=== PATIENT | male | born 1970 | race Caucasian/White ===

== ENCOUNTER 2021-04-22 14:00 | Observation (INO) ==
--- NOTE | 2021-04-22 16:23 | Emergency Department Note ---
History of Present Illness General Chief complaint: Weakness Stated complaint: LEFT SIDE OF BODY NUMBNESS Time Seen by Provider: 04/22/21 16:06 Source: patient History of Present Illness Provider complaint: Left-sided numbness Onset (ago): hour(s) Location: head, face, upper extremity, lower extremity and left Severity: mild Pain Consistency: + constant Maximum Pain Intensity: 2 Quality: + other ([id number]) Relieved By: + none Exacerbated By: + none Associated symptoms: + headaches (Very slight left-sided headache) and + weakness (Left leg); no chest pain, no cough, no fever/chills, no nausea/vomiting or no shortness of breath Treatments prior to arrival: none This is a 50-year-old male with a history of anxiety presenting with left-sided numbness and weakness. The patient developed left-sided numbness to the left leg last spring. He had back pain associated with it and it resolved after physical therapy. He has been having back pain and paresthesias to the left leg for the past month. He describes it as a [id number]-vmbqvbi sensation. He is not sure if he is weak in that leg but he states it feels hard to walk because it feels numb. He states that today he developed numbness to the head, face and arm on the left side starting at noon. He was not doing anything in particular. He had just exercised. He also describes this as a [id number] sensation. Is mostly on the ulnar aspect of the left arm. It does involve the scalp as well as the face. He does not feel weak in the upper extremity. He has had no trouble with his speech, finding words, swallowing, vision or double vision. He did have a slight headache develop on his way here on the left side. He denies any neck pain. He does have some minor back pain which is chronic for him. He denies any fever, cough or cold symptoms, chest pain, shortness of breath, abdominal pain, vomiting, diarrhea or urinary symptoms. He has had his Covid vaccinations in January. He has never contracted COVID-19. He denies any fecal urinary incontinence or saddle anesthesia. Home Medications Medication Instructions Recorded Confirmed Type calcium 600 mg capsule 600 mg PO QAM 04/22/21 04/22/21 History celecoxib 200 mg capsule 200 mg PO QAM 04/22/21 04/22/21 History cholecalciferol (vitamin D3) 25 25 mcg PO QAM 04/22/21 04/22/21 History mcg (1,000 unit) tablet (Vitamin D3) duloxetine 30 mg capsule,delayed 30 mg PO DAILY@1730 04/22/21 04/22/21 History release multivitamin 1 tab PO QAM 04/22/21 04/22/21 History Allergies Allergy/AdvReac Type Severity Reaction Status Date / Time Cipro Allergy Unknown HIVES Verified 01/10/16 12:22 ciprofloxacin Allergy Unknown HIVES Verified 04/22/21 17:03 Past Med/Surg History Medical History (Updated 04/22/21 @ 23:52 by Rickey Diallo MD) Anxiety IBS (irritable bowel syndrome) Lymphocytic colitis Osteoarthritis of knees, bilateral Surgical History (Updated 04/22/21 @ 20:10 by Peterson Huitron) S/P arthroscopy of knee Family History (Updated 04/22/21 @ 20:12 by Peterson Huitron) Mother , age 86 Myocardial infarction x 3 Parkinson disease Father , in his late 70s Renal cell cancer Denies family history of Stroke Social History (Updated 04/22/21 @ 20:12 by Peterson Huitron) Smoking Status: Never smoker Do You Dip or Chew Tobacco: No; Hx Alcohol Use: Yes Alcohol type: beer and wine Alcohol type Comment: 3 beers/day Alcohol Intake Frequency: 4 or More x per/Week Hx Substance Use: No Preferred Language: Wolof Communication Ability: Effective Motor Man Required: No Beliefs That Will Affect Care: None marital status: Current Living Situation: Spouse Current Living Situation Comment: Marisa current occupational status: employed 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 and A total of 10 systems reviewed and were otherwise negative Physical Exam Vital Signs Vital Signs - 24 hr 04/22/21 14:05 04/22/21 16:00 04/22/21 16:42 Temperature 36.6 C Temperature Source Oral Pulse Rate 92 H 83 Pulse Rate [Apical] 87 Pulse Rate from SpO2 Sensor 84 Pulse Rhythm [Apical] Regular Pulse Strength [Apical] Normal Respiratory Rate 20 20 30 H Respiratory Effort / Characteristics Non-Labored Spontaneous Respiratory Depth Normal Respiratory Pattern Regular Blood Pressure 164/106 H 175/95 H Blood Pressure [Right Arm] 175/95 H Blood Pressure Mean 125 121 Blood Pressure Mean [Right Arm] 121 Pulse Oximetry 99 99 100 Oxygen Delivery Method Room Air Room Air Sepsis Recent Fever Within 48 Hours No Sepsis New/Unexplained Change in Mental Status N/A Sepsis Action Taken by Nursing No Action Required 04/22/21 17:00 04/22/21 17:30 04/22/21 18:00 Temperature Temperature Source Pulse Rate 84 74 76 Pulse Rate [Apical] Pulse Rate from SpO2 Sensor 87 75 74 Pulse Rhythm [Apical] Pulse Strength [Apical] Respiratory Rate 24 20 19 Respiratory Effort / Characteristics Respiratory Depth Respiratory Pattern Blood Pressure 166/105 H 172/103 H 134/81 Blood Pressure [Right Arm] Blood Pressure Mean 125 126 98 Blood Pressure Mean [Right Arm] Pulse Oximetry 99 98 99 Oxygen Delivery Method Sepsis Recent Fever Within 48 Hours Sepsis New/Unexplained Change in Mental Status Sepsis Action Taken by Nursing 04/22/21 18:30 04/22/21 19:01 Temperature Temperature Source Pulse Rate 67 82 Pulse Rate [Apical] Pulse Rate from SpO2 Sensor 68 85 Pulse Rhythm [Apical] Pulse Strength [Apical] Respiratory Rate 18 21 Respiratory Effort / Characteristics Respiratory Depth Respiratory Pattern Blood Pressure 139/88 176/96 H Blood Pressure [Right Arm] Blood Pressure Mean 105 122 Blood Pressure Mean [Right Arm] Pulse Oximetry 98 97 Oxygen Delivery Method Sepsis Recent Fever Within 48 Hours Sepsis New/Unexplained Change in Mental Status Sepsis Action Taken by Nursing Constitutional: Vital signs reviewed. Eyes: Pupils are equal round reactive to light. Conjunctiva are noninjected. ENT: Pharynx is clear without erythema or exudate. Mucous membranes are moist. Neck supple without meningeal signs. Respiratory: Clear to auscultation bilaterally. Breath sounds are equal bilaterally. Cardiovascular: Regular rate and rhythm. No rubs or gallops. GI: Soft, nondistended and nontender. Bowel sounds are present. Musculoskeletal: No peripheral edema. No lower extremity tenderness. Integumentary: No cyanosis. or jaundice. Neurologic: The patient is awake and alert. Cranial nerves II-XII are intact, with dysesthesia to the scalp and left side of his face. Motor is 5 out of 5 all extremities except the left lower extremity which is 4 out of 5. Sensation is intact to light touch all extremities with dysesthesia to the left upper and lower extremity over the ulnar and lateral aspects.. Normal speech. No pronator drift. No limb ataxia. Normal gait. Psychiatric: Anxious. Course Administered Medications Sodium Chloride (Nss 1000ml) 1,000 mls @ 100 mls/hr IV .Q10H ROBERT Stop: 04/23/21 08:33 Last Admin: 04/22/21 23:05 Dose: 100 mls/hr Documented by: [id number] Discontinued Medications Aspirin (Aspirin 81 Mg Chew) 324 mg PO NOW STA Stop: 04/22/21 17:17 Last Admin: 04/22/21 17:25 Dose: 324 mg Documented by: [id number] Ioversol (Optiray 320 125ml) 115 ml IV ONCE ONE Stop: 04/22/21 16:29 Last Admin: 04/22/21 16:29 Dose: 115 ml Documented by: [id number] Medical Decision Making Differential Diagnosis Demyelinating disease, multiple sclerosis, paresthesias, intracranial mass, intracranial hemorrhage, CVA, lumbar radiculopathy Medical Records Attestation: I reviewed the patient's medical records. I did perform a limited focused review of portions of the patient's old chart on the electronic medical record. The patient has had no recent pertinent visits to this hospital. Home Medications Current Medication List: was personally reviewed by me Laboratory Data Attestation: I reviewed the patient's lab results. Result diagrams: 04/22/21 16:27 04/22/21 16:27 Lab Results 04/22/21 04/22/21 04/22/21 Range/Units 16:27 16:27 16:27 WBC 7.10 (4.8-10.8) K/uL RBC 4.42 L (4.7-6.1) M/uL Hgb 14.8 (14.0-18.0) g/dL Hct 43.8 (42-52) % MCV 99.1 (80-100) fL MCH 33.5 (25-34) pg MCHC 33.8 (32-36) g/dL RDW Std Deviation 47.4 H (36.4-46.3) fL RDW Coeff of Estelle 13.0 (11.5-14.5) % Plt Count 209 (130-400) K/uL MPV 9.2 (7.4-10.4) fL Immature Gran % (Auto) 0.1 % Neut % (Auto) 73.1 % Lymph % (Auto) 16.9 % [place] % (Auto) 7.9 % Eos % (Auto) 1.7 % Baso % (Auto) 0.3 % Neut # (Auto) 5.19 (1.4-6.5) K/uL Lymph # (Auto) 1.20 (1.2-3.4) K/uL [place] # (Auto) 0.56 (0.11-0.59) K/uL Eos # (Auto) 0.12 (0-0.5) K/uL Baso # (Auto) 0.02 (0-0.2) K/uL Immature Gran # (Auto) 0.01 (0.00-0.02) K/uL ESR (0-15) mm/hr PT 10.1 (9.0-12.0) Seconds INR 1.0 (0.9-1.1) APTT 25.4 (21.0-31.0) Seconds PTT Ratio 1.0 Sodium 136 (136-145) mmol/L Potassium 3.8 (3.5-5.1) mmol/L Chloride 102 (98-107) mmol/L Carbon Dioxide 30 (21-32) mmol/L Anion Gap 4.0 (3-11) BUN 16 (7-18) mg/dl Creatinine 1.02 (0.6-1.4) mg/dl Est Cr Clr Drug Dosing 108.7 ml/min Est GFR ( Amer) 100.3 ml/min Est GFR (Non-Af Amer) 86.5 ml/min BUN/Creatinine Ratio 15.8 (10-20) Glucose 105 H (70-99) mg/dl POC Glucose (70-99) mg/dl Calcium 9.8 (8.5-10.1) mg/dl Magnesium 1.9 (1.8-2.4) mg/dl Total Bilirubin 0.5 (0.2-1) mg/dl AST 43 H (15-37) U/L ALT 65 (12-78) U/L Alkaline Phosphatase 88 (45-117) U/L Troponin I < 0.015 (0-0.045) ng/ml C-Reactive Protein < 0.29 (0-0.29) mg/dl Total Protein 8.3 H (6.4-8.2) gm/dl Albumin 4.7 (3.4-5.0) gm/dl Globulin 3.6 (2.5-4.0) gm/dl Albumin/Globulin Ratio 1.3 (0.9-2) Lyme Disease IgG Ab (Negative) Lyme Disease IgM Ab (Negative) Blood Type Antibody Screen 04/22/21 04/22/21 04/22/21 Range/Units 16:27 16:27 16:40 WBC (4.8-10.8) K/uL RBC (4.7-6.1) M/uL Hgb (14.0-18.0) g/dL Hct (42-52) % MCV (80-100) fL MCH (25-34) pg MCHC (32-36) g/dL RDW Std Deviation (36.4-46.3) fL RDW Coeff of Estelle (11.5-14.5) % Plt Count (130-400) K/uL MPV (7.4-10.4) fL Immature Gran % (Auto) % Neut % (Auto) % Lymph % (Auto) % [place] % (Auto) % Eos % (Auto) % Baso % (Auto) % Neut # (Auto) (1.4-6.5) K/uL Lymph # (Auto) (1.2-3.4) K/uL [place] # (Auto) (0.11-0.59) K/uL Eos # (Auto) (0-0.5) K/uL Baso # (Auto) (0-0.2) K/uL Immature Gran # (Auto) (0.00-0.02) K/uL ESR 10 (0-15) mm/hr PT (9.0-12.0) Seconds INR (0.9-1.1) APTT (21.0-31.0) Seconds PTT Ratio Sodium (136-145) mmol/L Potassium (3.5-5.1) mmol/L Chloride (98-107) mmol/L Carbon Dioxide (21-32) mmol/L Anion Gap (3-11) BUN (7-18) mg/dl Creatinine (0.6-1.4) mg/dl Est Cr Clr Drug Dosing ml/min Est GFR ( Amer) ml/min Est GFR (Non-Af Amer) ml/min BUN/Creatinine Ratio (10-20) Glucose (70-99) mg/dl POC Glucose 82 (70-99) mg/dl Calcium (8.5-10.1) mg/dl Magnesium (1.8-2.4) mg/dl Total Bilirubin (0.2-1) mg/dl AST (15-37) U/L ALT (12-78) U/L Alkaline Phosphatase (45-117) U/L Troponin I (0-0.045) ng/ml C-Reactive Protein (0-0.29) mg/dl Total Protein (6.4-8.2) gm/dl Albumin (3.4-5.0) gm/dl Globulin (2.5-4.0) gm/dl Albumin/Globulin Ratio (0.9-2) Lyme Disease IgG Ab Negative (Negative) Lyme Disease IgM Ab Negative (Negative) Blood Type Antibody Screen 04/22/21 Range/Units 16:52 WBC (4.8-10.8) K/uL RBC (4.7-6.1) M/uL Hgb (14.0-18.0) g/dL Hct (42-52) % MCV (80-100) fL MCH (25-34) pg MCHC (32-36) g/dL RDW Std Deviation (36.4-46.3) fL RDW Coeff of Estelle (11.5-14.5) % Plt Count (130-400) K/uL MPV (7.4-10.4) fL Immature Gran % (Auto) % Neut % (Auto) % Lymph % (Auto) % [place] % (Auto) % Eos % (Auto) % Baso % (Auto) % Neut # (Auto) (1.4-6.5) K/uL Lymph # (Auto) (1.2-3.4) K/uL [place] # (Auto) (0.11-0.59) K/uL Eos # (Auto) (0-0.5) K/uL Baso # (Auto) (0-0.2) K/uL Immature Gran # (Auto) (0.00-0.02) K/uL ESR (0-15) mm/hr PT (9.0-12.0) Seconds INR (0.9-1.1) APTT (21.0-31.0) Seconds PTT Ratio Sodium (136-145) mmol/L Potassium (3.5-5.1) mmol/L Chloride (98-107) mmol/L Carbon Dioxide (21-32) mmol/L Anion Gap (3-11) BUN (7-18) mg/dl Creatinine (0.6-1.4) mg/dl Est Cr Clr Drug Dosing ml/min Est GFR ( Amer) ml/min Est GFR (Non-Af Amer) ml/min BUN/Creatinine Ratio (10-20) Glucose (70-99) mg/dl POC Glucose (70-99) mg/dl Calcium (8.5-10.1) mg/dl Magnesium (1.8-2.4) mg/dl Total Bilirubin (0.2-1) mg/dl AST (15-37) U/L ALT (12-78) U/L Alkaline Phosphatase (45-117) U/L Troponin I (0-0.045) ng/ml C-Reactive Protein (0-0.29) mg/dl Total Protein (6.4-8.2) gm/dl Albumin (3.4-5.0) gm/dl Globulin (2.5-4.0) gm/dl Albumin/Globulin Ratio (0.9-2) Lyme Disease IgG Ab (Negative) Lyme Disease IgM Ab (Negative) Blood Type B Positive Antibody Screen NEGATIVE Imaging Data Radiologist's Impression: Head CT 04/22/21 16:20 CT SCAN OF THE BRAIN WITHOUT IV CONTRAST CLINICAL HISTORY: Left-sided numbness. Lower extremity weakness. COMPARISON STUDY: No priors. TECHNIQUE: Unenhanced axial CT scan of the brain is performed from the vertex to the skull base. A dose lowering technique was utilized adhering to the principles of ALARA. FINDINGS: Brain parenchyma: The brain parenchyma is normal in appearance. There is no hemorrhage, mass effect, or evidence of acute territorial ischemia by CT criteria. Mancia-white matter differentiation is preserved. No extra-axial fluid collection is seen. Ventricles, sulci, cisterns: Normal in configuration. Intracranial vasculature: The visualized intracranial vasculature at the skull base is normal in appearance. Calvarium: Unremarkable. Sinuses and mastoids: The visualized paranasal sinuses are clear. The mastoid air cells are well pneumatized. Orbits: The bony orbits are grossly intact. IMPRESSION: There is no hemorrhage, mass effect, or evidence of acute territori al ischemia by CT criteria. ACT 112: Negative or not required by law. Electronically signed by: Brendan Buitrago M.D. 04/22/2021 4:37 PM Head CTA 04/22/21 16:20 CT ANGIOGRAM OF THE BRAIN; CT ANGIOGRAM OF THE NECK CLINICAL HISTORY: Left-sided numbness. COMPARISON STUDY: Unenhanced CT of the brain performed concurrently on 04/22/2021. TECHNIQUE: Following the IV administration of 115 of Optiray 320, CT angiogram of the head and neck was performed from the aortic arch to the vertex. Images are reviewed in the axial, sagittal, and coronal planes. 3-D MIPS images are created and assessed. IV contrast was administered without complication. All measurements were calculated based on NASCET criteria. A dose lowering techniqu e was utilized adhering to the principles of ALARA. CT DOSE: 1181.82 mGy.cm FINDINGS: Brain parenchyma: The brain parenchyma is normal in appearance. There is no hemorrhage, mass effect, or evidence of acute territorial ischemia by CT criteria. There is no evidence of enhancing mass lesion on the angiogram phase images. The ventricles, sulci, and cisterns are normal in configuration. Mancia- white matter differentiation is preserved. No extra-axial fluid collection is seen. Thoracic aorta: Visualized portions of the thoracic aorta are normal in caliber. The aortic arch demonstrates 4-vessel variant anatomy. Right carotid arterial system: The right common carotid artery is widely patent, as are the right internal and external carotid arteries. Left carotid arterial system: The left common carotid artery is widely patent, as are the left internal and external carotid arteries. Vertebral arteries: The vertebral arteries are widely patent bilaterally noting left-sided dominance. The left vertebral artery arises directly from the thoracic aorta. Subclavian arteries: Widely patent bilaterally. Intracranial vasculature: There are bilateral posterior communicating arteries, and origin of the right posterior cerebral artery. The internal carotid arteries are patent at the skull base, as are the anterior and middle cerebral arteries bilaterally. The vertebrobasilar system and posterior cerebral arteries are widely patent. The left vertebral artery is dominant. The intracranial right vertebral artery is diminutive and terminates as the PICA. There is no aneurysm, high-grade stenosis, or focal vessel cut off seen throughout the intracranial circulation. Jugular veins: Patent bilaterally. Dural sinuses: Patent. Lung apices: Partially visualized upper lobe lung parenchyma appears clear. Soft tissues: The visualized pharyngeal soft tissues are normal in appearance noting angiographic phase technique. The oropharyngeal airway appears widely patent. The salivary and thyroid glands are normal in appearance. No cervical lymphadenopathy is seen. Skeletal structures: The calvarium appears intact. The cervical spine is maintained. A large posterior disc osteophyte complex is noted at C6-C7. Orbits: The bony orbits are intact. Orbital contents are normal as visualized. Sinuses and mastoids: There is trace mucosal thickening in the left maxillary antrum. The remaining paranasal sinuses are clear. The mastoid air cells are well pneumatized. IMPRESSION: 1. There is no evidence of hemorrhage, mass effect, or acute territorial ischemia noting angiographic phase technique. 2. Unremarkable CT angiogram of the brain. 3. Unremarkable CT angiogram of the neck. ACT 112: Negative or not required by law. Electronically signed by: Brendan Buitrago M.D. 04/22/2021 4:45 PM Neck CTA 04/22/21 16:20 CT ANGIOGRAM OF THE BRAIN; CT ANGIOGRAM OF THE NECK CLINICAL HISTORY: Left-sided numbness. COMPARISON STUDY: Unenhanced CT of the brain performed concurrently on 04/22/2021. TECHNIQUE: Following the IV administration of 115 of Optiray 320, CT angiogram of the head and neck was performed from the aortic arch to the vertex. Images are reviewed in the axial, sagittal, and coronal planes. 3-D MIPS images are created and assessed. IV contrast was administered without complication. All measurements were calculated based on NASCET criteria. A dose lowering techniqu e was utilized adhering to the principles of ALARA. CT DOSE: 1181.82 mGy.cm FINDINGS: Brain parenchyma: The brain parenchyma is normal in appearance. There is no hemorrhage, mass effect, or evidence of acute territorial ischemia by CT criteria. There is no evidence of enhancing mass lesion on the angiogram phase images. The ventricles, sulci, and cisterns are normal in configuration. Mancia- white matter differentiation is preserved. No extra-axial fluid collection is seen. Thoracic aorta: Visualized portions of the thoracic aorta are normal in caliber. The aortic arch demonstrates 4-vessel variant anatomy. Right carotid arterial system: The right common carotid artery is widely patent, as are the right internal and external carotid arteries. Left carotid arterial system: The left common carotid artery is widely patent, as are the left internal and external carotid arteries. Vertebral arteries: The vertebral arteries are widely patent bilaterally noting left-sided dominance. The left vertebral artery arises directly from the thoracic aorta. Subclavian arteries: Widely patent bilaterally. Intracranial vasculature: There are bilateral posterior communicating arteries, and origin of the right posterior cerebral artery. The internal carotid arteries are patent at the skull base, as are the anterior and middle cerebral arteries bilaterally. The vertebrobasilar system and posterior cerebral arteries are widely patent. The left vertebral artery is dominant. The intracranial right vertebral artery is diminutive and terminates as the PICA. There is no aneurysm, high-grade stenosis, or focal vessel cut off seen throughout the intracranial circulation. Jugular veins: Patent bilaterally. Dural sinuses: Patent. Lung apices: Partially visualized upper lobe lung parenchyma appears clear. Soft tissues: The visualized pharyngeal soft tissues are normal in appearance noting angiographic phase technique. The oropharyngeal airway appears widely patent. The salivary and thyroid glands are normal in appearance. No cervical lymphadenopathy is seen. Skeletal structures: The calvarium appears intact. The cervical spine is maintained. A large posterior disc osteophyte complex is noted at C6-C7. Orbits: The bony orbits are intact. Orbital contents are normal as visualized. Sinuses and mastoids: There is trace mucosal thickening in the left maxillary antrum. The remaining paranasal sinuses are clear. The mastoid air cells are well pneumatized. IMPRESSION: 1. There is no evidence of hemorrhage, mass effect, or acute territorial ischemia noting angiographic phase technique. 2. Unremarkable CT angiogram of the brain. 3. Unremarkable CT angiogram of the neck. ACT 112: Negative or not required by law. Electronically signed by: Brendan Buitrago M.D. 04/22/2021 4:45 PM ECG Data Attestation: I personally reviewed and interpreted this ECG as follows: Indication: + other (Left-sided numbness) Rate (beats per minute): 70 Rhythm: + normal sinus ECG [place]: + Normal ECG ST segments: no ST elevation ECG Findings: no PVCs MDM Narrative I did evaluate the patient as noted above. Patient is presenting with strokelike symptoms starting at noon today involving the left side of his body. He has some weakness and numbness to the left leg but he has had numbness to the leg for over a month now. He states that he started having numbness to the face and left upper extremity starting at noon today. He is not an IV TPA candidate given the time course of his illness. I did call a stroke alert. IV access was established. I did order a stat CT of the head and CT angiogram of the head and neck. I did review the images myself as well as the radiology report as described above. There is no evidence of acute infarct. Angiograms are unremarkable. I did place an order for continuous cardiac monitoring. The monitor showed normal sinus rhythm at a rate of 92 bpm. I did order and personally review the patient's 12-lead EKG as described above. He has no evidence of dysrhythmia or ischemia. I did order and review the patient's blood work as noted in the electronic medical record. CBC and electrolytes are unremarkable. He does not have leukocytosis or anemia. AST was slightly elevated at 43. Troponin is negative. I did discuss the test results with the patient. He continues to have dysesthesia to the left side of his body. I did recommend hospitalization for further care and evaluation as well as MRI of the brain and lumbar spine. He was agreeable to this. I did discuss case with the hospitalist and employment case manager. Screening Covid test was negative. Impression & Plan Left sided numbness, Elevated AST (SGOT), Left leg weakness Discharge Plan Visit Data Chief Complaint: Weakness Stated Complaint: LEFT SIDE OF BODY NUMBNESS ED Provider: Rickey Diallo Discharge Problem: Left sided numbness, Elevated AST (SGOT), Left leg weakness Patient Disposition: Admitted As Inpatient Discharge Instructions Interventions: ED Discharge Assessment Last Done: 04/22/21 22:09
[2021-04-22] MEDS ORDERED: OPTIRAY 320 125ml IV ONE (16:28)
[2021-04-22 16:36] LABS: Basophils # (auto) 0.02 K/uL (0-0.2); Basophils % (auto) 0.3 %; Eosinophils # (auto) 0.12 K/uL (0-0.5); Eosinophils % (auto) 1.7 %; Hematocrit (blood only) 43.8 % (42-52); Hemoglobin 14.8 g/dL (14.0-18.0); Immature Granulocytes # (auto) 0.01 K/uL (0.00-0.02); Immature Granulocytes % (auto) 0.1 %; Lymphocytes % (auto) 16.9 %; Mean Corpuscular Hemoglobin 33.5 pg (25-34); Mean Corpuscular Hgb Conc 33.8 g/dL (32-36); Mean Corpuscular Volume 99.1 fL (80-100); Mean Platelet Volume 9.2 fL (7.4-10.4); Monocytes # (auto) 0.56 K/uL (0.11-0.59); Monocytes % (auto) 7.9 %; Neutrophils # (auto) 5.19 K/uL (1.4-6.5); Neutrophils % (auto) 73.1 %; Platelet Count 209 K/uL (130-400); RDW Standard Deviation 47.4 fL (36.4-46.3); Red Blood Count 4.42 M/uL (4.7-6.1)
--- NOTE | 2021-04-22 16:39 | CT Scan Report ---
CT SCAN OF THE BRAIN WITHOUT IV CONTRAST CLINICAL HISTORY: Left-sided numbness. Lower extremity weakness. COMPARISON STUDY: No priors. TECHNIQUE: Unenhanced axial CT scan of the brain is performed from the vertex to the skull base. A d ose lowering technique was utilized adhering to the principles of ALARA. FINDINGS: Brain parenchyma: The brain parenchyma is normal in appearance. There is no hemorrhage, mass effect, or evidence of acute territorial ischemia by CT criteria. Mancia-white matter differentiation is preser roberto. No extra-axial fluid collection is seen. Ventricles, sulci, cisterns: Normal in configuration. Intracranial vasculature: The visualized intracranial vasculature at the skull base is normal in appe arance. Calvarium: Unremarkable. Sinuses and mastoids: The visualized paranasal sinuses are clear. The mastoid air cells are well pneu matized. Orbits: The bony orbits are grossly intact. IMPRESSION: There is no hemorrhage, mass effect, or evidence of acute territorial ischemia by CT tatiana lópez. ACT 112: Negative or not required by law. Electronically signed by: Brendan Buitrago M.D. 04/22/2021 4:37 PM
--- NOTE | 2021-04-22 16:46 | CT Scan Report ---
CT ANGIOGRAM OF THE BRAIN; CT ANGIOGRAM OF THE NECK CLINICAL HISTORY: Left-sided numbness. COMPARISON STUDY: Unenhanced CT of the brain performed concurrently on 04/22/2021. TECHNIQUE: Following the IV administration of 115 of Optiray 320, CT angiogram of the head and neck w as performed from the aortic arch to the vertex. Images are reviewed in the axial, sagittal, and fidel nal planes. 3-D MIPS images are created and assessed. IV contrast was administered without complicati on. All measurements were calculated based on NASCET criteria. A dose lowering technique was utilize d adhering to the principles of ALARA. CT DOSE: 1181.82 mGy.cm FINDINGS: Brain parenchyma: The brain parenchyma is normal in appearance. There is no hemorrhage, mass effect, or evidence of acute territorial ischemia by CT criteria. There is no evidence of enhancing mass lesi on on the angiogram phase images. The ventricles, sulci, and cisterns are normal in configuration. Gr ay-white matter differentiation is preserved. No extra-axial fluid collection is seen. Thoracic aorta: Visualized portions of the thoracic aorta are normal in caliber. The aortic arch demo nstrates 4-vessel variant anatomy. Right carotid arterial system: The right common carotid artery is widely patent, as are the right int ernal and external carotid arteries. Left carotid arterial system: The left common carotid artery is widely patent, as are the left international travel consultant al and external carotid arteries. Vertebral arteries: The vertebral arteries are widely patent bilaterally noting left-sided dominance. The left vertebral artery arises directly from the thoracic aorta. Subclavian arteries: Widely patent bilaterally. Intracranial vasculature: There are bilateral posterior communicating arteries, and origin of t he right posterior cerebral artery. The internal carotid arteries are patent at the skull base, as ar e the anterior and middle cerebral arteries bilaterally. The vertebrobasilar system and posterior cer ebral arteries are widely patent. The left vertebral artery is dominant. The intracranial right verte bral artery is diminutive and terminates as the PICA. There is no aneurysm, high-grade stenosis, or f ocal vessel cut off seen throughout the intracranial circulation. Jugular veins: Patent bilaterally. Dural sinuses: Patent. Lung apices: Partially visualized upper lobe lung parenchyma appears clear. Soft tissues: The visualized pharyngeal soft tissues are normal in appearance noting angiographic pha se technique. The oropharyngeal airway appears widely patent. The salivary and thyroid glands are nor mal in appearance. No cervical lymphadenopathy is seen. Skeletal structures: The calvarium appears intact. The cervical spine is maintained. A large posterio r disc osteophyte complex is noted at C6-C7. Orbits: The bony orbits are intact. Orbital contents are normal as visualized. Sinuses and mastoids: There is trace mucosal thickening in the left maxillary antrum. The remaining p aranasal sinuses are clear. The mastoid air cells are well pneumatized. IMPRESSION: 1. There is no evidence of hemorrhage, mass effect, or acute territorial ischemia noting angiographic phase technique. 2. Unremarkable CT angiogram of the brain. 3. Unremarkable CT angiogram of the neck. ACT 112: Negative or not required by law. Electronically signed by: Brendan Buitrago M.D. 04/22/2021 4:45 PM
[2021-04-22 16:49] LABS: Partial Thromboplastin Time 25.4 Seconds (21.0-31.0); Prothrombin Time 10.1 Seconds (9.0-12.0)
[2021-04-22 16:54] LABS: Alanine Aminotransferase 65 U/L (12-78); Albumin Level 4.7 gm/dl (3.4-5.0); Aspartate Aminotransferase 43 U/L (15-37); BUN Creatinine Ratio 15.8 (10-20); Blood Urea Nitrogen 16 mg/dl (7-18); Calcium 9.8 mg/dl (8.5-10.1); Carbon Dioxide 30 mmol/L (21-32); Chloride 102 mmol/L (98-107); Creatinine Clr Calc Pharmacy 108.7 ml/min; Est GFR (African American) 100.3 ml/min; Est GFR (Non-African American) 86.5 ml/min; Glucose 105 mg/dl (70-99); Magnesium 1.9 mg/dl (1.8-2.4); Potassium 3.8 mmol/L (3.5-5.1); Sodium 136 mmol/L (136-145)
[2021-04-22 16:59] LABS: Albumin Globulin Ratio 1.3 (0.9-2); Alkaline Phosphatase 88 U/L (45-117); Bilirubin,Total 0.5 mg/dl (0.2-1); Globulin 3.6 gm/dl (2.5-4.0); Total Protein 8.3 gm/dl (6.4-8.2); Troponin I < 0.015 ng/ml (0-0.045)
[2021-04-22] MEDS ORDERED: ASPIRIN 81 MG CHEW PO STA (17:16)
[2021-04-22 18:39] LABS: C Reactive Protein < 0.29 mg/dl (0-0.29)
[2021-04-22 19:08] LABS: Lyme Ab IgG w/WB Rflx Negative (Negative); Lyme Ab IgM w/WB Rflx Negative (Negative)
--- NOTE | 2021-04-22 20:06 | History & Physical Report ---
Date of Service April 22, 2021 Assessment & Plan (1) Left sided numbness: Plan: Symptoms have now persisted for 6+ hours. Left side of face/arm/trunk/leg remain numb. Right side is spared; no motor symptoms, speech clear. Sent a lyme screen - negative. sed rate and crp both normal. Symptoms/presentation worrisome for a pure sensory stroke which would localize to the right deep brain/brainstem. Cervical spine radiculopathy is possible but would only explain the left arm symptoms; he otherwise has no signs of myelopathy, and cervical radiculopathy shouldn't cause maribel-sensory loss of the face. NO history of migraines thus atypical migraine unlikely. Plan - * observe on telemetry * MRI brain w/ and w/o contrast - r/o stroke, r/o tumor, r/o other process * echo * lipids, a1c in am * could consider a b12 level but b12 deficiency tends to lead to b/l symptoms; presentation not c/w b12 def * consult neuro for additional recs in am * consider c-spine MRI as the CTA neck showed a large disc herniation at C6-C7 In the event this is a TIA or stroke event - start asa 81mg daily in am. BPs are high - allow permissiveness in BP until cause of symptoms is known. (2) Elevated blood pressure reading without diagnosis of hypertension: Plan: No prior h/o HTN. Could be related to #1. Could be related to steroid injections yesterday. Could be related to celebrex taken earlier today. Follow the BPs off of meds for now. (3) Abnormal CT scan, cervical spine: Plan: CTA neck showed a large posterior disc osteophyte at C6-C7. This bears watching and/or additional work-up if MRI brain is negative. (4) Elevated AST (SGOT): Plan: etiology? repeat AST in am. (5) Anxiety: Plan: will add buspar 5mg tid prn as he seems very anxious at time of admission cont cymbalta 30mg daily (6) Osteoarthritis of knees, bilateral: Plan: s/p steroid injections yesterday to both knees (7) DVT prophylaxis: Plan: low risk defer on chemical means for now Plan: place on observation status 1 L NS to be given in light of CT contrast administered earlier today History of Present Illness Chief Complaint: left-sided numbness Primary Care Provider: Ambrose Cervantes MD 50yo male with history of IBS, prior dx of lymphocytic colitis in 2019 (not on Rx), anxiety, and chronic knee pain who presents with left-sided numbness beginning about noon today. Patient states that for about 1 month he has had intermittent numbness of the lateral left leg from the knee down to the foot. He attributed this to his lumbar spine as he has had back problems in the past. However, he denies ever having advanced imaging of the spine and denies any current lumbar back pain today. At noon today he states that "the numbness just went up my body from my left knee." In other words the numbness extended to the left flank/left upper buttock region, to the lateral chest, into the lateral left arm, and into the left face. He also felt some slight numbness on the left lateral neck. Denies ANY motor weakness, dysarthria or aphasia, or difficulty walking. No dysphagia. No visual disturbance or vertigo. I saw the patient at about 6pm/630pm and the numbness was still quite prominent on the left side of his body. Denies any right-sided symptoms. Denies h/o migraine headaches, although he has a very slight headache over the left congregational region. He gets just occasional, mild headaches. Denies any recent head injury. Denies any recent tick bites. Did have lyme disease 20+ years ago but no tickborne illness since. Finally, mentions he had b/l knee injections with steroid yesterday. Otherwise no other changes in health. Allergies Allergy/AdvReac Type Severity Reaction Status Date / Time Cipro Allergy Unknown HIVES Verified 01/10/16 12:22 ciprofloxacin Allergy Unknown HIVES Verified 04/22/21 17:03 Home Medications Medication Instructions Recorded Confirmed Type calcium 600 mg capsule 600 mg PO QAM 04/22/21 04/22/21 History celecoxib 200 mg capsule 200 mg PO QAM 04/22/21 04/22/21 History cholecalciferol (vitamin D3) 25 25 mcg PO QAM 04/22/21 04/22/21 History mcg (1,000 unit) tablet (Vitamin D3) duloxetine 30 mg capsule,delayed 30 mg PO DAILY@1730 04/22/21 04/22/21 History release multivitamin 1 tab PO QAM 04/22/21 04/22/21 History Past Med/Surg History Medical History (Updated 04/23/21 @ 01:41 by Peterson Huitron) Anxiety IBS (irritable bowel syndrome) Lymphocytic colitis Osteoarthritis of knees, bilateral Surgical History (Updated 04/22/21 @ 20:10 by Peterson Huitron) S/P arthroscopy of knee Family History (Updated 04/22/21 @ 20:12 by Peterson Huitron) Mother , age 86 Myocardial infarction x 3 Parkinson disease Father , in his late 70s Renal cell cancer Denies family history of Stroke Social History (Updated 04/22/21 @ 20:12 by Peterson Huitron) Smoking Status: Never smoker Do You Dip or Chew Tobacco: No; Hx Alcohol Use: Yes Alcohol type: beer and wine Alcohol type Comment: 3 beers/day Alcohol Intake Frequency: 4 or More x per/Week Hx Substance Use: No Preferred Language: Tamazight Communication Ability: Effective Stock Preparer Required: No Beliefs That Will Affect Care: None marital status: Current Living Situation: Spouse Current Living Situation Comment: Marisa current occupational status: employed 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 [employer] How many Children do You have: 0 Feels Safe at Home: Yes Safety Concerns: Feels Safe At This Time Assistive Devices: None Review of Systems Constitutional: no fever, no chills, no fatigue, no anorexia and no weight loss Eyes: no diplopia and no worsening vision Ear, Nose, Mouth, Throat: no ear pain, no sore throat and no dysphagia Respiratory: no cough, no dyspnea and no dyspnea on exertion Cardiovascular: no chest pain and no palpitations Gastrointestinal: + diarrhea/loose stools (chronic ); no abdominal pain, no nausea and no vomiting Genitourinary: no dysuria Musculoskeletal: + back pain (not today, but in the past ), + radicular pain (LLE) and + joint pain (knees; no other location) Integumentary: no rash Neurologic: as per Subjective / HPI, + numbness, + radiating pain and + headache(s); no gait abnormality, no unsteadiness, no localized weakness, no tremor(s), no abnormal movements, no seizure-like activity, no dizziness, no syncope, no abnormal speech and no confusion Psychiatric: + anxiety Endocrine: denies diabetes Hematologic / Lymphatic: no easy bleeding Physical Exam Constitutional: well developed and well nourished; no acute distress and no altered mental status Eyes: PERRL and EOM intact bilaterally; no conjunctival abnormality and no ny stagmus ENMT: external ear and nose normal, oropharynx normal Neck: trachea midline, no thyromegaly Respiratory: normal respiratory effort, lungs clear to auscultation Cardiovascular: Rate/Rhythm: regular rate and regular rhythm Heart Sounds: normal S1 and normal S2; no murmur Vessels: posterior tibial pulses present and dorsalis pedis pulses present; no JVD Extremities: no edema Gastrointestinal (Abdomen): normal bowel sounds, soft, nontender, no hepatosplenomegaly Musculoskeletal: no cyanosis or clubbing, extremities motor strength 5/5 Skin: no rashes, warm and dry Neurologic: PERRL, EOMI, accommodation nl, no face palsy, no dysarthria deep tendon reflexes 2+ bilaterally and moves all extremities; no focal motor deficits Motor/Sensory: + sensory deficit (LEFT face, arm, trunk, and most of leg; right side fully intact sensory); normal movement and no pronator drift Gait: no ataxic gait Coordination: normal [id number] test Psychiatric: Orientation: alert and oriented x 3 Affect: + anxious affect Lymphatic: no cervical lymphadenopathy Results & Data Results & Data ([facility]) Vital Signs (Past 12 Hours) Vital Signs Temp Pulse Pulse Resp BP BP Pulse Ox 04/22/21 19:01 82 21 176/96 H 97 04/22/21 18:30 67 18 139/88 98 04/22/21 18:00 76 19 134/81 99 04/22/21 17:30 74 20 172/103 H 98 04/22/21 17:00 84 24 166/105 H 99 04/22/21 16:42 83 30 H 175/95 H 100 04/22/21 16:00 87 20 175/95 H 99 04/22/21 14:05 36.6 C 92 H 20 164/106 H 99 Laboratory Results Laboratory Results - last 24 hr 04/22/21 04/22/21 04/22/21 16:27 16:27 16:27 WBC 7.10 RBC 4.42 L Hgb 14.8 Hct 43.8 MCV 99.1 MCH 33.5 MCHC 33.8 RDW Std Deviation 47.4 H RDW Coeff of Estelle 13.0 Plt Count 209 MPV 9.2 Immature Gran % (Auto) 0.1 Neut % (Auto) 73.1 Lymph % (Auto) 16.9 [place] % (Auto) 7.9 Eos % (Auto) 1.7 Baso % (Auto) 0.3 Neut # (Auto) 5.19 Lymph # (Auto) 1.20 [place] # (Auto) 0.56 Eos # (Auto) 0.12 Baso # (Auto) 0.02 Immature Gran # (Auto) 0.01 ESR PT 10.1 INR 1.0 APTT 25.4 PTT Ratio 1.0 Sodium 136 Potassium 3.8 Chloride 102 Carbon Dioxide 30 Anion Gap 4.0 BUN 16 Creatinine 1.02 Est Cr Clr Drug Dosing 108.7 Est GFR ( Amer) 100.3 Est GFR (Non-Af Amer) 86.5 BUN/Creatinine Ratio 15.8 Glucose 105 H POC Glucose Calcium 9.8 Magnesium 1.9 Total Bilirubin 0.5 AST 43 H ALT 65 Alkaline Phosphatase 88 Troponin I < 0.015 C-Reactive Protein < 0.29 Total Protein 8.3 H Albumin 4.7 Globulin 3.6 Albumin/Globulin Ratio 1.3 Lyme Disease IgG Ab Lyme Disease IgM Ab COVID-19 Eval Order SARS-CoV-2 (PCR) Blood Type Antibody Screen 04/22/21 04/22/21 04/22/21 16:27 16:27 16:40 WBC RBC Hgb Hct MCV MCH MCHC RDW Std Deviation RDW Coeff of Estelle Plt Count MPV Immature Gran % (Auto) Neut % (Auto) Lymph % (Auto) [place] % (Auto) Eos % (Auto) Baso % (Auto) Neut # (Auto) Lymph # (Auto) [place] # (Auto) Eos # (Auto) Baso # (Auto) Immature Gran # (Auto) ESR 10 PT INR APTT PTT Ratio Sodium Potassium Chloride Carbon Dioxide Anion Gap BUN Creatinine Est Cr Clr Drug Dosing Est GFR ( Amer) Est GFR (Non-Af Amer) BUN/Creatinine Ratio Glucose POC Glucose 82 Calcium Magnesium Total Bilirubin AST ALT Alkaline Phosphatase Troponin I C-Reactive Protein Total Protein Albumin Globulin Albumin/Globulin Ratio Lyme Disease IgG Ab Negative Lyme Disease IgM Ab Negative COVID-19 Eval Order SARS-CoV-2 (PCR) Blood Type Antibody Screen 04/22/21 04/22/21 04/22/21 16:52 20:03 20:03 WBC RBC Hgb Hct MCV MCH MCHC RDW Std Deviation RDW Coeff of Estelle Plt Count MPV Immature Gran % (Auto) Neut % (Auto) Lymph % (Auto) [place] % (Auto) Eos % (Auto) Baso % (Auto) Neut # (Auto) Lymph # (Auto) [place] # (Auto) Eos # (Auto) Baso # (Auto) Immature Gran # (Auto) ESR PT INR APTT PTT Ratio Sodium Potassium Chloride Carbon Dioxide Anion Gap BUN Creatinine Est Cr Clr Drug Dosing Est GFR ( Amer) Est GFR (Non-Af Amer) BUN/Creatinine Ratio Glucose POC Glucose Calcium Magnesium Total Bilirubin AST ALT Alkaline Phosphatase Troponin I C-Reactive Protein Total Protein Albumin Globulin Albumin/Globulin Ratio Lyme Disease IgG Ab Lyme Disease IgM Ab COVID-19 Eval Order Covid19 [facility] SARS-CoV-2 (PCR) NEGATIVE Blood Type B Positive Antibody Screen NEGATIVE Diagnostic Findings Head CT 04/22/21 16:20 CT SCAN OF THE BRAIN WITHOUT IV CONTRAST CLINICAL HISTORY: Left-sided numbness. Lower extremity weakness. COMPARISON STUDY: No priors. TECHNIQUE: Unenhanced axial CT scan of the brain is performed from the vertex to the skull base. A dose lowering technique was utilized adhering to the principles of ALARA. FINDINGS: Brain parenchyma: The brain parenchyma is normal in appearance. There is no hemorrhage, mass effect, or evidence of acute territorial ischemia by CT criteria. Mancia-white matter differentiation is preserved. No extra-axial fluid collection is seen. Ventricles, sulci, cisterns: Normal in configuration. Intracranial vasculature: The visualized intracranial vasculature at the skull base is normal in appearance. Calvarium: Unremarkable. Sinuses and mastoids: The visualized paranasal sinuses are clear. The mastoid air cells are well pneumatized. Orbits: The bony orbits are grossly intact. IMPRESSION: There is no hemorrhage, mass effect, or evidence of acute territorial ischemia by CT criteria. ACT 112: Negative or not required by law. Electronically signed by: Brendan Buitrago M.D. 04/22/2021 4:37 PM Head CTA 04/22/21 16:20 CT ANGIOGRAM OF THE BRAIN; CT ANGIOGRAM OF THE NECK CLINICAL HISTORY: Left-sided numbness. COMPARISON STUDY: Unenhanced CT of the brain performed concurrently on 04/22/2021. TECHNIQUE: Following the IV administration of 115 of Optiray 320, CT angiogram of the head and neck was performed from the aortic arch to the vertex. Images are reviewed in the axial, sagittal, and coronal planes. 3-D MIPS images are created and assessed. IV contrast was administered without complication. All measurements were calculated based on NASCET criteria. A dose lowering technique was utilized adhering to the principles of ALARA. CT DOSE: 1181.82 mGy.cm FINDINGS: Brain parenchyma: The brain parenchyma is normal in appearance. There is no hemorrhage, mass effect, or evidence of acute territorial ischemia by CT criteria. There is no evidence of enhancing mass lesion on the angiogram phase images. The ventricles, sulci, and cisterns are normal in configuration. Mancia- white matter differentiation is preserved. No extra-axial fluid collection is seen. Thoracic aorta: Visualized portions of the thoracic aorta are normal in caliber. The aortic arch demonstrates 4-vessel variant anatomy. Right carotid arterial system: The right common carotid artery is widely patent, as are the right internal and external carotid arteries. Left carotid arterial system: The left common carotid artery is widely patent, as are the left internal and external carotid arteries. Vertebral arteries: The vertebral arteries are widely patent bilaterally noting left-sided dominance. The left vertebral artery arises directly from the thoracic aorta. Subclavian arteries: Widely patent bilaterally. Intracranial vasculature: There are bilateral posterior communicating arteries, and origin of the right posterior cerebral artery. The internal carotid ar teries are patent at the skull base, as are the anterior and middle cerebral arteries bilaterally. The vertebrobasilar system and posterior cerebral arteries are widely patent. The left vertebral artery is dominant. The intracranial right vertebral artery is diminutive and terminates as the PICA. There is no aneurysm, high-grade stenosis, or focal vessel cut off seen throughout the intracranial ci rculation. Jugular veins: Patent bilaterally. Dural sinuses: Patent. Lung apices: Partially visualized upper lobe lung parenchyma appears clear. Soft tissues: The visualized pharyngeal soft tissues are normal in appearance noting angiographic phase technique. The oropharyngeal airway appears widely patent. The salivary and thyroid glands are normal in appearance. No cervical lymphadenopathy is seen. Skeletal structures: The calvarium appears intact. The cervical spine is maintained. A large posterior disc osteophyte complex is noted at C6-C7. Orbits: The bony orbits are intact. Orbital contents are normal as visualized. Sinuses and mastoids: There is trace mucosal thickening in the left maxillary antrum. The remaining paranasal sinuses are clear. The mastoid air cells are wel l pneumatized. IMPRESSION: 1. There is no evidence of hemorrhage, mass effect, or acute territorial ischemia noting angiographic phase technique. 2. Unremarkable CT angiogram of the brain. 3. Unremarkable CT angiogram of the neck. ACT 112: Negative or not required by law. Electronically signed by: Brendan Buitrago M.D. 04/22/2021 4:45 PM Neck CTA 04/22/21 16:20 CT ANGIOGRAM OF THE BRAIN; CT ANGIOGRAM OF THE NECK CLINICAL HISTORY: Left-sided numbness. COMPARISON STUDY: Unenhanced CT of the brain performed concurrently on 04/22/2021. TECHNIQUE: Following the IV administration of 115 of Optiray 320, CT angiogram of the head and neck was performed from the aortic arch to the vertex. Images are reviewed in the axial, sagittal, and coronal planes. 3-D MIPS images are created and assessed. IV contrast was administered without complication. All measurements were calculated based on NASCET criteria. A dose lowering technique was utilized adhering to the principles of ALARA. CT DOSE: 1181.82 mGy.cm FINDINGS: Brain parenchyma: The brain parenchyma is normal in appearance. There is no hemorrhage, mass effect, or evidence of acute territorial ischemia by CT criteria. There is no evidence of enhancing mass lesion on the angiogram phase images. The ventricles, sulci, and cisterns are normal in configuration. Mancia- white matter differentiation is preserved. No extra-axial fluid collection is seen. Thoracic aorta: Visualized portions of the thoracic aorta are normal in caliber. The aortic arch demonstrates 4-vessel variant anatomy. Right carotid arterial system: The right common carotid artery is widely patent, as are the right internal and external carotid arteries. Left carotid arterial system: The left common carotid artery is widely patent, as are the left internal and external carotid arteries. Vertebral arteries: The vertebral arteries are widely patent bilaterally noting left-sided dominance. The left vertebral artery arises directly from the thoracic aorta. Subclavian arteries: Widely patent bilaterally. Intracranial vasculature: There are bilateral posterior communicating arteries, and origin of the right posterior cerebral artery. The internal carotid arteries are patent at the skull base, as are the anterior and middle cerebral arteries bilaterally. The vertebrobasilar system and posterior cerebral arteries are widely patent. The left vertebral artery is dominant. The intracranial right vertebral artery is diminutive and terminates as the PICA. There is no aneurysm, high-grade stenosis, or focal vessel cut off seen throughout the intracranial circulation. Jugular veins: Patent bilaterally. Dural sinuses: Patent. Lung apices: Partially visualized upper lobe lung parenchyma appears clear. Soft tissues: The visualized pharyngeal soft tissues are normal in appearance noting angiographic phase technique. The oropharyngeal airway appears widely patent. The salivary and thyroid glands are normal in appearance. No cervical lymphadenopathy is seen. Skeletal structures: The calvarium appears intact. The cervical spine is maintained. A large posterior disc osteophyte complex is noted at C6-C7. Orbits: The bony orbits are intact. Orbital contents are normal as visualized. Sinuses and mastoids: There is trace mucosal thickening in the left maxillary antrum. The remaining paranasal sinuses are clear. The mastoid air cells are well pneumatized. IMPRESSION: 1. There is no evidence of hemorrhage, mass effect, or acute territorial ischemia noting angiographic phase technique. 2. Unremarkable CT angiogram of the brain. 3. Unremarkable CT angiogram of the neck. ACT 112: Negative or not required by law. Electronically signed by: Brendan Buitrago M.D. 04/22/2021 4:45 PM EKG- my reading - NSR, no ST Changes Code Status & VTE Plan Code Status full code PG Care Time/CCT Total # of Minutes Spent Total Time Spent with Patient: Total time spent is greater than 50% in coordination of care (as documented) at patient's floor/unit and/or counseling patient: Coding Level of Care Code INT OBSERVATION CARE 50M LVL 2 Diagnoses Anxiety F41.9 Left sided numbness R20.0 Elevated blood pressure reading without diagnosis of hypertension R03.0 Osteoarthritis of knees, bilateral M17.0 Elevated AST (SGOT) R74.01 DVT prophylaxis Z29.[address] scan, cervical spine R93.7
[2021-04-22] MEDS ORDERED: busPIRone 5 MG TAB PO PRN (22:34)
[2021-04-22] MEDS ORDERED: SODIUM CHLORIDE 0.9% 1000ML 1,000 ML IV SCH (22:34)
[2021-04-22] MEDS ORDERED: ONDANSETRON INJ 2 MG/ML 2 ML VIAL IV PRN (22:34)
[2021-04-22] MEDS ORDERED: PHARMACIST DISCHARGE MED REC CONSULT PRN (22:34)
[2021-04-22] MEDS ORDERED: ACETAMINOPHEN 325 MG TAB PO PRN (22:34)
[2021-04-23 07:10] LABS: BUN Creatinine Ratio 14.8 (10-20); Calcium 8.8 mg/dl (8.5-10.1); Creatinine Clr Calc Pharmacy 124.6 ml/min; Est GFR (African American) 117.2 ml/min; Est GFR (Non-African American) 101.1 ml/min; Potassium 4.2 mmol/L (3.5-5.1)
[2021-04-23] MEDS ORDERED: MULTIVITAMIN TAB PO SCH (09:00)
[2021-04-23] MEDS ORDERED: ASPIRIN 81 MG ECTAB PO SCH (09:00)
[2021-04-23 09:04] LABS: Estimated Average Glucose 103 mg/dl; Hemoglobin A1C 5.2 % (4.5-5.6)
--- NOTE | 2021-04-23 09:11 | Neurology Consultation ---
Date of Consultation April 23, 2021 Assessment & Plan (1) Numbness: (2) Other cervical disc degeneration at C6-C7 level: Patient's distribution of numbness is a bit unusual or atypical for stroke. However, a small right thalamic ischemic stroke cannot be excluded. Yet, he does not have any typical risk factors for stroke such as hypertension, diabetes mellitus, or cigarette smoking. Of note, there is no evidence of vertebral or carotid dissection or occlusive disease on his CT angiography. There is some evidence, however, of a large posterior disc osteophyte complex at C6-7 and I think it is possible that his sensory symptoms could be related to this issue as well as a possible lumbar radiculopathy or partial peroneal neuropathy to the left lower limb. Of note, cervical spinal stenosis may also produce sensory symptoms in the lower extremities. He is not weak on neurologic al examination and does not have a sensory level. However, his deep tendon reflexes for the lower limbs are somewhat brisk which may be consistent with a mild cervical myelopathy. Agree with brain MRI as ordered. I did add a noncontrast cervical spine MRI as well to exclude myelopathy. Spoke with certified hyperbaric technologist, should be able to complete at the same time as brain MRI. Would consider obtaining further outpatient evaluation including MRI of the lumbar spine and EMG of the left arm leg depending on above results. If brain MRI does reveal evidence of an acute infarct would recommend a hyp ercoagulable panel in addition to the transthoracic echocardiogram as ordered. Also, if patient's MRI does reveal evidence of an acute ischemic stroke would of course continue with daily low-dose aspirin and consider starting a statin as well. If MRI does not reveal evidence of stroke he probably would not require daily low-dose aspirin therapy. History of Present Illness Reason for Consultation: TIA versus stroke? Requesting Physician: Peterson Huitron MD Attending Physician: Peterson Hernandez MD History of Present Illness The patient is a 50-year-old male with a chief complaint of numbness. He complains of numbness affecting the distal left lower leg, from the knee down to the foot that has been a chronic intermittent problem for many months. He is very physically active, lifts weights and does some type of cardiovascular exercise most days of the week. Past medical history notable for degenerative arthritis of the knees for which she recently had cortisone injections. History also notable for IBS/lymphocytic colitis, and anxiety. He has been working out with weights yesterday, primarily doing upper body exercises, when he noted acute worsening of his left lower extremity numbness which spread proximally up the leg, into the thorax, neck, left upper arm, and left side of the face. He does admit to some occasional neck pain and in fact recalls waking up one morning a few days ago with more acute neck pain, thinking that he may have "slept on it funny." He denies any associated headache, vision change, change in speech, weakness of the limbs, vertigo, or difficulty with balance. The sensory symptoms were persistent which prompted him to seek further evaluation in the emergency department yesterday. He did have a CT of the head including CT angiogram of the head and neck. These tests were unremarkable. No evidence of hemorrhage, acute or subacute infarct, dissection, or vascular occlusion. There is evidence of a large posterior disc osteophyte complex at C6-7. I reviewed the images as well as the radiologist's interpretation of these tests and agree. Given the persistence of this patient's left hemisensory symptoms, he was admitted to the [facility] for further evaluation and management with concern for possible hemisensory stroke syndrome. The patient does not have a known history of hypertension, hyperlipidemia, or diabetes mellitus. He is a non-smoker. He does drink a moderate amount of alcohol. 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 Allergies Allergy/AdvReac Type Severity Reaction Status Date / Time Cipro Allergy Unknown HIVES Verified 01/10/16 12:22 ciprofloxacin Allergy Unknown HIVES Verified 04/22/21 17:03 Home Medications Medication Instructions Recorded Confirmed Type calcium 600 mg capsule 600 mg PO QAM 04/22/21 04/22/21 History celecoxib 200 mg capsule 200 mg PO QAM 04/22/21 04/22/21 History cholecalciferol (vitamin D3) 25 25 mcg PO QAM 04/22/21 04/22/21 History mcg (1,000 unit) tablet (Vitamin D3) duloxetine 30 mg capsule,delayed 30 mg PO DAILY@1730 04/22/21 04/22/21 History release multivitamin 1 tab PO QAM 04/22/21 04/22/21 History Patient History Medical History (Updated 04/23/21 @ 09:07 by Steve Diaz MD) Anxiety IBS (irritable bowel syndrome) Lymphocytic colitis Osteoarthritis of knees, bilateral Surgical History (Updated 04/22/21 @ 20:10 by Peterson Huitron) S/P arthroscopy of knee Family History (Updated 04/22/21 @ 20:12 by Peterson Huitron) Mother , age 86 Myocardial infarction x 3 Parkinson disease Father , in his late 70s Renal cell cancer Denies family history of Stroke Social History (Updated 04/22/21 @ 20:12 by Peterson Huitron) Smoking Status: Never smoker Do You Dip or Chew Tobacco: No; Hx Alcohol Use: Yes Alcohol type: beer and wine Alcohol type Comment: 3 beers/day Alcohol Intake Frequency: 4 or More x per/Week Hx Substance Use: No Preferred Language: Albanian Communication Ability: Effective Savings Teller Required: No Beliefs That Will Affect Care: None marital status: Current Living Situation: Spouse Current Living Situation Comment: Marisa current occupational status: employed 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 [employer] How many Children do You have: 0 Feels Safe at Home: Yes Safety Concerns: Feels Safe At This Time Assistive Devices: None Review of Systems Constitutional: no fever and no chills Eyes: no blind spots and no diplopia Ear, Nose, Mouth, Throat: no ear pain and no hearing loss Respiratory: no cough and no dyspnea Cardiovascular: no chest pain and no palpitations Gastrointestinal: no constipation and no diarrhea/loose stools Genitourinary: no urinary incontinence or no urinary urgency Musculoskeletal: no muscle weakness and no muscle atrophy Integumentary: no rash and no lesions Neurologic: as per Subjective / HPI Psychiatric: no behavioral changes, no depression, no abnormal sleep pattern and no anxiety Hematologic / Lymphatic: no easy bruising and no lymphadenopathy Exam (Neuro) Constitutional: well developed and well nourished; no acute distress Eyes: normal visual ray by confrontation, PERRL, normal accommodation and EOM intact bilaterally; no fundoscopic abnormality, no nystagmus and no papilledema Cardiovascular: Vessels: normal carotid upstroke; no carotid bruit Neurologic: Oriented to:: Person, Place and Time Memory: Short Term Intact and Remote Intact Attention: Span Intact and Concentration Intact Language: Naming Objects and Repeating Phrases Speech Fluency: negative Dysarthria Speech Aphasia: negative Aphasia Fund of Knowledge: Current Events, Past History and Vocabulary Cranial Nerves: Normal II (Visual ray full to confrontation, visual acuity normal), III, IV, (Pupils equal round reactive to light and accommodation, eye movements normal), VII (There is no facial droop or weakness), VIII (Hearing intact), IX, X (Palate elevates to midline), XI (Shoulder shrug intact) and XII (Tongue protrudes to midline); Abnorm V (Decreased facial sensation to light touch noted for the left upper and middle aspects of the face.) Motor Strength: Normal Lower Extremities and Normal Upper Extremities; negative Pronator Drift Motor Tone: Normal Lower Extremities and Normal Upper Extremities Muscle Bulk/Involuntary Movements: No Involuntary Movements; negative Muscle Atrophy Sensation: Vibration Intact and Proprioception Intact; negative Light Touch Intact or Pain/Temperature Intact Coordination: Normal; negative Limited Balance, Dysdiadochokinesia, Finger-Nose Abnormal or Heel-Potrer Abnormal Deep Tendon Reflexes: Rt Triceps: 2+, Lt Triceps: 2+, Rt Biceps: 2+, Lt Biceps: 2+, Rt Brachioradialis: 2+, Lt Brachioradialis: 2+, Rt Patellar: 2+, Lt Patellar: 2+, Rt Ankle: 2+ and Lt Ankle: 2+ Special Tests: negative Babinski Present Gait: Normal Station and Gait Details: Decreased sensation to light touch, and temperature for the left arm and leg, specifically the lateral aspect of the left upper limb corresponding to a C6 dermatome as well as the left lower leg, from the knee down, both lateral and medial aspects of the leg and foot. Proprioception and vibration are relatively intact. Results & Data ([facility]) Vital Signs (Past 12 Hours) Vital Signs Temp Pulse Pulse Resp BP BP Pulse Ox 04/23/21 07:48 36.4 C L 56 L 20 123/74 100 04/23/21 04:00 36.4 C L 53 L 18 143/87 H 100 04/23/21 03:00 36.8 C 73 20 156/90 H 96 04/22/21 22:45 37 C 04/22/21 22:43 37 C 68 16 159/91 H 100 04/22/21 22:40 76 04/22/21 22:00 80 15 134/79 99 04/22/21 21:30 70 18 145/90 H 96 04/22/21 21:00 74 19 136/83 98 Laboratory Results WBC 7.10, hemoglobin 14.8, hematocrit 43.8, platelet count 209, sodium 138, potassium 4.2, BUN 13, creatinine 0.89, glucose 95, calcium 8.8, magnesium 1.9, AST 36, ALT 55, troponin less than 0.015, CRP less than 0.29, triglycerides 75, cholesterol 244, LDL 144, VLDL 15, HDL 85, Lyme screen negative, SARS-CoV-[address] of the head including CT angiography of the head and neck reviewed and are as described in the history of present illness. I reviewed the images as well as the radiologist interpretation of these tests. Electrocardiogram reveals a normal sinus rhythm, 70 bpm. Coding Level of Care Code 89748 Inpt Consult Level 5 Diagnoses Numbness R20.0 Other cervical disc degeneration at C6-C7 level M50.323
[2021-04-23] MEDS ORDERED: LORazepam 1 MG/2 ML VIAL IV PRN (10:12)
--- NOTE | 2021-04-23 10:28 | Electrocardiogram Report ---
Test Reason : Blood Pressure : / mmHG Vent. Rate : 070 BPM Atrial Rate : 070 BPM P-R Int : 140 ms QRS Dur : 088 ms QT Int : 390 ms P-R-T Axes : 067 039 030 degrees QTc Int : 421 ms Normal sinus rhythm Normal ECG When compared with ECG of 04-APR-2020 11:54, No significant change was found Confirmed by Mehul Nguyen ([id number]) on 04/23/2021 10:27:30 AM Referred By: REFERRED SELF Confirmed By:Austin Nguyen
[2021-04-23] MEDS ORDERED: GADOBUTROL 30ML VIAL IV ONE (11:38)
--- NOTE | 2021-04-23 12:38 | Magnetic Resonance Report ---
MRI OF THE BRAIN WITHOUT AND WITH IV CONTRAST CLINICAL HISTORY: L-sided numbness; ?brainstem stroke? COMPARISON STUDY: No previous studies for comparison. TECHNIQUE: MRI of the brain was performed from the vertex to the skull base utilizing various T1 and T2 weighted sequences. Following the IV administration of mL of Gadavist contrast, additional enhance d images were obtained. FINDINGS: Sagittal T1, axial diffusion, proton density and T2 weighted axial, coronal FLAIR, and pre and post a xial T1-weighted images were acquired. These were supplemented with post gadolinium coronal T1 weight ed images. No intra or extra-axial mass lesions are visualized. Axial diffusion-weighted images reveal no evidence of acute or subacute infarction. There is no evidence of ventricular dilatation. Proton density T2-weighted and FLAIR images reveal scattered foci of increased T2 signal within the p eriventricular and subcortical white matter, predominantly within bilateral frontal lobes which is no nspecific and usually seen in older patients with chronic small vessel ischemia. There are no abnormal flow voids. There is no evidence of pathologic enhancement. IMPRESSION: No acute intracranial hemorrhage, no midline shift or space occupying lesions. No evidence of restricted diffusion to suggest acute ischemia/infarct. No areas of abnormal enhancement. Punctate areas of high T2 FLAIR signal within periventricular and subcortical white matter predominan tly within bilateral frontal lobes is nonspecific, could represent chronic small vessel ischemia, dem yelinating process or sometimes could be seen in patients with history of migraine. ACT 112: Negative or not required by law. The above report was generated using voice recognition software. It may contain grammatical, syntax o r spelling errors. Electronically signed by: Marisol Herbert DO 04/23/2021 12:37 PM
--- NOTE | 2021-04-23 12:50 | Magnetic Resonance Report ---
MR cervical spine wo con CLINICAL HISTORY: myelopathy TECHNIQUE: Sagittal and axial T1, T2 and STIR images were obtained. COMPARISON STUDY: No previous studies for comparison. There are no suspicious areas of marrow replacement. Patchy areas of slightly increased T2 signal within the cord are seen at the C5 and C6 level. Focal c entral linear increased T2 signal is seen within upper thoracic spine which incompletely evaluated on current exam. C2-3: There is no evidence of disc bulge or focal herniation. There is no spinal or foraminal stenosi s. C3-4: There is no evidence of disc bulge or focal herniation. Central canal is patent. Mild narrowing of bilateral neuroforamina are seen.. C4-5: Mild narrowing of intervertebral disc space with disc desiccation. Diffuse bulge of the disc is seen causing flattening of thecal sac. Mild stenosis of bilateral neuroforamina are seen at this lev el. C5-6 :Intervertebral disc space narrowing with disc desiccation and posterior osteophytes. Diffuse bu lge of the disc is seen causing mild stenosis of the central canal. Mild stenosis of bilateral neurof oramina are seen. C6-7: Intervertebral disc space narrowing and disc desiccation. Diffuse bulge of the disc is seen cau sing flattening of thecal sac. Moderate stenosis of bilateral neuroforamina are seen. C7-T1: There is no evidence of disc bulge or focal herniation. There is no evidence of spinal or fora rowan stenosis. IMPRESSION: Multifocal areas of high T2 signal within cervical spine which might represent myelopathy, demyelina ting process versus other etiology. Questionable linear high T2 signal within cord which might represent syrinx and incompletely evaluate d on current exam. Please correlate above-mentioned findings was prior history. Further evaluation [facility] MRI of the thoracic spine might be considered if clinically indicated. Mild multilevel degenerative changes as detailed above. ACT 112: Negative or not required by law. The above report was generated using voice recognition software. It may contain grammatical, syntax o r spelling errors. Electronically signed by: Marisol Herbert DO 04/23/2021 12:49 PM
--- NOTE | 2021-04-23 13:55 | XCELERA ---
[id number]
[2021-04-23] MEDS ORDERED: STROKE PATIENT DISCHARGE STA (15:19)
--- NOTE | 2021-04-23 15:20 | Discharge Summary ---
Date of Service April 23, 2021 Admission HPI Per Admitting Provider 50yo male with history of IBS, prior dx of lymphocytic colitis in 2019 (not on Rx), anxiety, and chronic knee pain who presents with left-sided numbness beginning about noon today. Patient states that for about 1 month he has had intermittent numbness of the lateral left leg from the knee down to the foot. He attributed this to his lumbar spine as he has had back problems in the past. However, he denies ever having advanced imaging of the spine and denies any current lumbar back pain today. At noon today he states that "the numbness just went up my body from my left knee." In other words the numbness extended to the left flank/left upper buttock region, to the lateral chest, into the lateral left arm, and into the left face. He also felt some slight numbness on the left lateral neck. Denies ANY motor weakness, dysarthria or aphasia, or difficulty walking. No dysphagia. No visual disturbance or vertigo. I saw the patient at about 6pm/630pm and the numbness was still quite prominent on the left side of his body. Denies any right-sided symptoms. Denies h/o migraine headaches, although he has a very slight headache over the left judaism region. He gets just occasional, mild headaches. Denies any recent head injury. Denies any recent tick bites. Did have lyme disease 20+ years ago but no tickborne illness since. Finally, mentions he had b/l knee injections with steroid yesterday. Otherwise no other changes in health. Discharge Data Allergies Allergy/AdvReac Type Severity Reaction Status Date / Time Cipro Allergy Unknown HIVES Verified 01/10/16 12:22 ciprofloxacin Allergy Unknown HIVES Verified 04/22/21 17:03 Consultations 04/22/21 17:16 ED Decision to Admit Stat 04/22/21 22:34 Consult Neurology Routine Ordered Studies 04/22/21 16:20 CT angio head w con Stat CT angio neck with con Stat CT head/brain wo con Stat 04/23/21 08:46 MR brain wo/w con Routine 04/23/21 09:11 MR cervical spine wo con Routine Hospital Course (1) Left sided numbness: Symptoms have now persisted for 6+ hours. Left side of face/arm/trunk/leg remain numb. Right side is spared; no motor symptoms, speech clear. Sent a lyme screen - negative. sed rate and crp both normal. Symptoms/presentation worrisome for a pure sensory stroke which would localize to the right deep brain/brainstem. Cervical spine radiculopathy is possible but would only explain the left arm symptoms; he otherwise has no signs of myelopathy, and cervical radiculopathy shouldn't cause maribel-sensory loss of the face. NO history of migraines thus atypical migraine unlikely. Plan - * observe on telemetry * MRI brain w/ and w/o contrast - r/o stroke, r/o tumor, r/o other process * echo * lipids, a1c in am * could consider a b12 level but b12 deficiency tends to lead to b/l symptoms; presentation not c/w b12 def * consult neuro for additional recs in am * consider c-spine MRI as the CTA neck showed a large disc herniation at C6-C7 In the event this is a TIA or stroke event - start asa 81mg daily in am. BPs are high - allow permissiveness in BP until cause of symptoms is known. (2) Elevated blood pressure reading without diagnosis of hypertension: No prior h/o HTN. Could be related to #1. Could be related to steroid injections yesterday. Could be related to celebrex taken earlier today. Follow the BPs off of meds for now. (3) Abnormal CT scan, cervical spine: CTA neck showed a large posterior disc osteophyte at C6-C7. This bears watching and/or additional work-up if MRI brain is negative. (4) Elevated AST (SGOT): etiology? repeat AST in am. (5) Anxiety: will add buspar 5mg tid prn as he seems very anxious at time of admission cont cymbalta 30mg daily (6) Osteoarthritis of knees, bilateral: s/p steroid injections yesterday to both knees (7) DVT prophylaxis: low risk defer on chemical means for now place on observation status 1 L NS to be given in light of CT contrast administered earlier today Discharge Plan Discharge Items Patient Disposition: Home - Self-Care Reason For Visit: LEFT-SIDED NUMBNESS Discharge Diagnosis: Left-sided numbness Moderate cervical spinal stenosis Activity: As commented below Lifting: No more than 10 pounds Bathing: No limitations Exercise Comment: No lifting over 10 pounds, high impact or neck exercises until follow-up Non-emergency contact: Neurologist Call non-emergency contact if: you have any medication questions and your symptoms worsen Follow-up/Referrals: Steve Diaz MD [Physician] - Ambrose Cervantes MD [Primary Care Provider] - Diet: Regular Addtl Attending Provider Instructions: You were observed at [facility] from April 22-2020 due to left-sided numbness. Work-up including CTs and MRIs of head and neck were negative for stroke. No definitive explanation of your symptoms were found although you do have moderate spinal stenosis at C6-C7 which may be contributory. Please follow-up with Dr. Diaz in clinic for following up testing. Recommend aspirin for primary prophylaxis of cardiovascular disease given your family history, mild small vessel changes on MRI, cholesterol and blood pressure. Please follow-up with your family physician for ongoing management of cardiovascular disease. Your cholesterol was also notably elevated but at this stage recommend lifestyle changes per handout sheet rather than medication. Pending Studies at Discharge: No Stand-Alone Forms: My [facility], Smoking Cessation Medications and DC Order Prescriptions: New aspirin 81 mg Tablet,Delayed Release (Dr/Ec) 81 mg PO QAM Qty: 30 RF: 0 Continued multivitamin Tablet 1 tab PO QAM RF: 0 celecoxib 200 mg capsule 200 mg PO QAM RF: 0 calcium 600 mg Capsule 600 mg PO QAM RF: 0 duloxetine 30 mg capsule,delayed release(DR/EC) 30 mg PO DAILY@1730 RF: 0 cholecalciferol (vitamin D3) [Vitamin D3] 25 mcg (1,000 unit) Tablet 25 mcg PO QAM RF: 0 Discharge Orders: Discharge Order (Routine); Ordered 04/23/21 Ordered By: Peterson Garcia/Other Patient Handouts: Cervical Disk Problems, Cholesterol Lifestyle Changes Admission Data Admit Date/Time: 04/22/21 19:27 Attending Provider: Peterson Hernandez Admit Provider: Peterson Huitron Primary Care Provider: Ambrose Cervantes Other Providers: Peterson Huitron ; Steve Diaz Coding Diagnoses Left sided numbness R20.0 Elevated blood pressure reading without diagnosis of hypertension R03.[address] scan, cervical spine R93.7 Elevated AST (SGOT) R74.01 Anxiety F41.9 Osteoarthritis of knees, bilateral M17.0 DVT prophylaxis Z29.9
[2021-04-23] MEDS ORDERED: DULoxetine HCL 30 MG CAP PO SCH (17:30)
== END 2021-04-23 16:04 | disposition home or self-care (01) ==
LOC: ED 14:00 → 2S 14:00 → SUATTDRO 19:27 → 2S 22:09